=== PATIENT | female | born 1990 | race African-American/Black ===

== ENCOUNTER 2016-05-10 23:06 | Emergency (ER) | payer OTHER ==
[~2016-05-10] VITALS: Ht 152.4 cm; Wt 78.0 kg
[~2016-05-10 23:06] MED LIST: CLIN150 PO
[2016-05-10 23:07] VITALS: BP 135/82; PULSE 54; RESP 16; TEMP 98.2; O2SAT 100
[2016-05-11] MEDS ORDERED: methylPREDNISolone SOD SUCC 125 MG/2 ML VIAL IM ONE (00:30)
[2016-05-11] MEDS ORDERED: diphenhydrAMINE HCL 50 MG/ML VIAL IM ONE (00:30)
[2016-05-11] MEDS ORDERED: ZYRT10CA PO (00:32)
[2016-05-11] MEDS ORDERED: PRED-503 PO (00:32)
--- NOTE | 2016-05-11 00:38 | PD ---
HPI Chief Complaint: Allergic/Adverse Reaction Time Seen by Provider: 00:33 Travel History International Travel<30 days: No Contact w/Intl Traveler<30days: No Traveled to known affect area: No History of Present Illness HPI 25-year-old black female presents to emergency department for evaluation of allergic reaction. She states that sometime around 9:00 this evening while at work she noticed some swelling of her left upper lip and left face. She states that she has some mild pruritus. She does not recall any new chemicals, foods, skin care products or environmental changes. She denies any history of allergic reactions in the past. She does have allergy to aspirin does does not report any exposure. She denies any glossal edema. No difficulty swallowing. No shortness of breath or wheezing. No obvious rashes. PFSH Past Medical History Medical History: Denies Significant Hx Hx Anticoagulant Therapy: No Anemia: No Arthritis: No Cardiovascular Problems: No Chemotherapy: No Cerebrovascular Accident: No Diminished Hearing: No Respiratory: No Immunizations Current: Yes Tetanus Vaccination: < 5 Years ?: Not LMP: CURRENT Menopausal: No : 0 Past Surgical History Section: Yes Hysterectomy: No Social History Alcohol Use: No (just quit) Tobacco Use: No (just quit) Substance Use: No Allergies-Medications (Allergen,Severity, Reaction): Coded Allergies: Aspirin (Verified Allergy, Severe, 05/10/16) Reported Meds & Prescriptions Reported Meds & Active Scripts Active Zyrtec Allergy (Cetirizine HCl) 10 Mg Cap 10 Mg PO DAILY Deltasone (Prednisone) 20 Mg Tab 20 Mg PO TID Review of Systems Except as stated in HPI: all other systems reviewed are Neg Physical Exam Narrative GENERAL: Well-developed, well-nourished in no acute distress. Nontoxic appearing. HEAD: Normocephalic, patient has some mild angioedema of the left cheek and left upper lip. EYES: Pupils equal round and reactive. Extraocular motions intact. No scleral icterus. No injection or drainage. ENT: TMs clear without erythema. The external auditory canals clear. Nose: clear . Posterior pharynx is pink and moist. No tonsillar edema or exudate. Uvula midline. Airway patent. Tongue is normal. She is handling her secretions well. There is no change in her voice. NECK: Trachea midline.Supple, nontender, moves head freely. No central bony tenderness or spasm. CARDIOVASCULAR: Regular rate and rhythm without murmurs, gallops, or rubs. RESPIRATORY: Clear to auscultation. Breath sounds equal bilaterally. No wheezes , rales, or rhonchi. GASTROINTESTINAL: Abdomen soft, non-tender, nondistended. No hepato-splenomegaly , or palpable masses. No guarding. EXTREMITIES: No clubbing, cyanosis, or edema. No joint tenderness, effusion, or edema noted. BACK: Nontender without deformity or crepitance. No flank tenderness. Skin: No rashes or lesions. The patient does have some angioedema of the left upper lip and left face. This is mild. Data Data Last Documented VS Vital Signs Date Time Temp Pulse Resp B/P Pulse Ox O2 Delivery O2 Flow Rate FiO2 05/10/16 23:07 98.2 54 16 135/82 100 Room Air Orders Methylprednisolone So Succ Inj (Solumedr (05/11/16 00:30) Diphenhydramine Inj (Benadryl Inj) (05/11/16 00:30) Ranitidine (Zantac) (05/11/16 00:45) MDM Medical Decision Making Medical Screen Exam Complete: Yes Emergency Medical Condition: Yes Medical Record Reviewed: Yes Differential Diagnosis Differential diagnoses: Allergic reaction, angioedema, contact dermatitis Narrative Course Patient given Solu-Medrol 125 mg IM, Benadryl 50 mg IM and Zantac 300 mg by mouth. The patient is been monitored for additional hour here in the ER. She has actually had improvement of her swelling. She is phonating normally. She is handling her secretions and swallowing normally. The patient is medically stable and will be discharged. This is allergic reaction Diagnosis Primary Impression: Allergic reaction Qualified Code: T78.40XA - Allergic reaction, initial encounter Patient Instructions: General Instructions Departure Forms: Tests/Procedures, Work Release Special Instructions: No work 05/11/16 and 05/12/16 Additional Instructions: Rest. Wash your face and body with hypoallergenic soap. Continue to take 50 mg of Benadryl every 4 hours. 2 [id number] Zantac twice daily for the next 5 days. Medications as directed. Recheck with your doctor in the next 1-2 days. Return to the ER if symptoms worsen or if problems develop. Med/Other Pt SpecificInfo: Prescription(s) given Scripts Cetirizine (Zyrtec Allergy)10 Mg Cap10 Mg PO DAILY #10 CAP Prov:Danny Enrique MD 05/11/16 Prednisone (Deltasone)20 Mg Tab20 Mg PO TID #15 TAB Prov:Danny Enrique MD 05/11/16 Disposition: 01 DISCHARGE HOME Condition: Stable Gabriel Sanchez May 11, 2016 00:38
[2016-05-11] MEDS ORDERED: RANITIDINE HCL 150 MG TAB PO ONE (00:45)
== END 2016-05-11 01:56 | disposition home or self-care (01) ==
LOC: NEPB 23:06
DX: T78.40XA Allergy, unspecified, initial encounter (principal)
CPT/HCPCS: 96372; 99283; J1200; J2930